=== PATIENT | male | born 1995 | race African-American/Black ===

== ENCOUNTER 2019-11-05 16:11 | Emergency (ER) | payer SELFPAY ==
[~2019-11-05] VITALS: Ht 172.7 cm; Wt 75.0 kg
[2019-11-05] MEDS ORDERED: ACETAMINOPHEN 500MG TABLET PO ONE (18:15)
[2019-11-05] MEDS ORDERED: IBUPROFEN 800MG TABLET PO ONE (18:15)
[2019-11-05 19:26] LABS: CLARITY URINE CLOUDY (CLEAR); COLOR URINE DARK YELLOW (YELLOW); KETONES URINE NEGATIVE (NEGATIVE); LEUKOCYTE ESTERASE URINE 1+ (NEGATIVE); NITRITE URINE NEGATIVE (NEGATIVE); OCCULT BLOOD URINE NEGATIVE (NEGATIVE); PROTEIN URINE 3+ (NEGATIVE); UROBILINOGEN URINE 0.2 E.U./dL (0.2-1.0)
[2019-11-05 20:01] VITALS: BP 142/84
== END 2019-11-05 20:01 | disposition home or self-care (01) ==
LOC: ER 16:11
DX: J06.9 Acute upper respiratory infection, unspecified (principal); R05 Cough
CPT/HCPCS: 71045; 81003; 87804; 99284